=== PATIENT | male | born 1955 | race Caucasian/White ===

== ENCOUNTER → 2022-10-28 08:00 | Outpatient (BNVA) | payer MEDICARE, BC, SELFPAY | PROVIDERS: PCP Internal Medicine; Visit Provider Internal Medicine Rheumatology | DX: Z13.89 Encounter for screening for other disorder (principal) ==

== ENCOUNTER 2022-10-28 09:01 | Outpatient (REF) | payer MEDICARE, SELFPAY ==
--- NOTE | ~2022-10-28 | XR_ITS ---
EXAMINATION: XR HAND, RIGHT CLINICAL INFORMATION: Primary osteoarthritis of the right hand COMPARISON: None TECHNIQUE: Four views of the right hand. FINDINGS: No fracture or dislocation. No periostitis or erosions. No radiopaque foreign body. XR/XR hand RT min 3V IMPRESSION: No acute osseous abnormality.
--- NOTE | ~2022-10-28 | XR_ITS ---
EXAMINATION: XR HAND, LEFT CLINICAL INFORMATION: Primary osteoarthritis of the right hand (sic) COMPARISON: None TECHNIQUE: PA, lateral, and oblique views of the left hand. FINDINGS: No fracture. No dislocation. No radiopaque foreign body. Mild interphalangeal joint space narrowing, for example the second distal interphalangeal joint. XR/XR hand LT min 3V IMPRESSION: Mild degenerative changes as described above.
[2022-10-28 10:22] LABS: MANUAL DIFF FLAG NO
[2022-10-28 10:29] LABS: Basophils Absolute Auto 0.1 X10*3/uL (0.0-0.2); Basophils Percent Auto 0.9 % (0-2); Eosinophils Absolute Auto 0.3 X10*3/uL (0.0-0.4); Eosinophils Percent Auto 3.6 % (0-4); Hematocrit 49.9 % (42.0-52.0); Hemoglobin 16.4 g/dl (14.0-18.0); Imm Gran Abs Auto 0.06 X10*3/uL (0.00-0.03); Imm Gran Pct Auto 0.7 % (0.0-0.4); Lymphocytes Absolute Auto 1.4 X10*3/uL (1.2-4.9); Lymphocytes Percent Auto 15.7 % (20-40); Mean Corpuscular HGB Conc 32.9 g/dl (31.0-36.0); Mean Corpuscular Volume 91.4 fL (80.0-98.0); Mean Platelet Volume 9.8 fL (9.4-12.4); Monocytes Absolute Auto 0.6 X10*3/uL (0.1-1.2); Monocytes Percent Auto 6.7 % (2-11); Neutrophils Absolute Auto 6.5 x10*3/uL (2.0-8.3); Neutrophils Percent Auto 72.4 % (45-73); Platelet Count 213 X10*3/uL (160-400); Red Blood Count 5.46 X10*6/uL (4.60-5.80); Red Cell Distribution Width 13.3 % (11.0-16.0)
[2022-10-28 10:38] LABS: C Reactive Protein 0.45 mg/dL (< or = 0.50)
[2022-10-28 11:00] LABS: Creatinine Urine 209.03 mg/dL; Protein/Creatinine Ratio, Ur 0.05 (<0.2); Total Protein Urine Random 11 mg/dL (<12)
[2022-10-28 11:58] LABS: Erythrocyte Sedimentation Rate 13 MM/HR (0-15)
[2022-11-03 09:58] LABS: Anti DNA DS Antibody <1 IU/mL; SM/Ribonucleoprotein Ab <1.0 NEG AI (<1.0 NEG); Smith Protein <1.0 NEG AI (<1.0 NEG)
== END 2022-10-28 09:02 | disposition home or self-care (01) ==
LOC: HO.10HDL 09:01
PROVIDERS: PCP Internal Medicine; Visit Provider Internal Medicine Rheumatology
DX: M19.041 Primary osteoarthritis, right hand (principal); M19.042 Primary osteoarthritis, left hand; R20.0 Anesthesia of skin; M47.812 Spondylosis without myelopathy or radiculopathy, cervical region; R76.8 Other specified abnormal immunological findings in serum; M75.82 Other shoulder lesions, left shoulder; M65.9 Synovitis and tenosynovitis, unspecified
CPT/HCPCS: 36415; 73130; 84156; 85025; 85652; 86140; 86225; 86235; 99202